=== PATIENT | male | born 1995 | race Caucasian/White ===

== ENCOUNTER → 2017-08-12 16:04 | Outpatient (CLI) | payer OTHER, SELFPAY ==
[2017-08-12 17:12] LABS: Add Manual Diff / Slide Review NO; Basophils Percent Auto 0.8 % (0-2); Eosinophils Percent Auto 5.3 % (2-4); Hematocrit 44.8 % (41-53); Hemoglobin 15.5 g/dL (13.5-17.5); Lymphocytes Percent Auto 29.9 % (25-40); Mean Corpuscular HGB Conc 34.6 % (30-36); Mean Corpuscular Hemoglobin 29.6 PG (26-34); Mean Corpuscular Volume 85.6 fL (80-100); Monocytes Percent Auto 8.5 % (3-14); Neutrophils Absolute Auto 4200 /uL (3000-5900); Neutrophils Percent Auto 55.5 % (50-75); Platelet Count 271 X10^3/uL (150-400); Red Blood Cell Count 5.23 X10^6/uL (4.5-5.9); Red Cell Distribution Width 13.3 % (11.6-14.8); White Blood Cell Count 7.5 X10^3/uL (4.5-11.0)
[2017-08-12 17:27] LABS: Alanine Aminotransferase 63 IU/L (21-72); Albumin 4.5 g/dL (3.5-5.0); Albumin Globulin Ratio 1.5 (1.0-2.8); Alkaline Phosphatase 70 U/L (38-126); Aspartate Aminotransferase 43 IU/L (17-59); BUN Creatinine Ratio 15.6 (6-22); Bilirubin Total 0.5 mg/dL (0.2-1.3); Blood Urea Nitrogen 14 mg/dL (9-20); Calcium 9.6 mg/dL (8.4-10.2); Carbon Dioxide 28 mmol/L (22-32); Chloride 103 mmol/L (98-107); Estimated Glomerular Filt Rate > 60.0 mL/min (>60); Glucose 92 mg/dL (70-100); HEMOLYSIS 17 (0-50); Potassium 4.3 mmol/L (3.4-5.1); Sodium 144 mmol/L (137-145); Total Protein 7.5 g/dL (6.3-8.2)
[2017-08-12 17:28] LABS: Alanine Aminotransferase 56 IU/L (21-72); Albumin 4.5 g/dL (3.5-5.0); Albumin Globulin Ratio 1.5 (1.0-2.8); Alkaline Phosphatase 69 U/L (38-126); Aspartate Aminotransferase 43 IU/L (17-59); Bilirubin Total 0.5 mg/dL (0.2-1.3); Bilirubin Unconjugated 0.3 mg/dL (0.0-1.1); HEMOLYSIS 16 (0-50); Total Protein 7.5 g/dL (6.3-8.2)
== END ==
PROVIDERS: Visit Provider Physician Assistant
DX: R19.7 Diarrhea, unspecified (principal)
CPT/HCPCS: 36415; 80053; 80076; 85025; 87015; 87045; 87205; 87427; 87899